=== PATIENT | female | born 1995 | race Caucasian/White ===

== ENCOUNTER 2016-04-07 09:01 | Emergency (ER) | payer OTHER ==
[~2016-04-07 09:01] MED LIST: PREN1CAP17 PO
--- NOTE | 2016-04-07 09:33 | PD ---
HPI Chief Complaint possibly leaking water? Date Seen: Apr 07, 2016 Travel History International Travel<30 Days: No Contact w/Intl Traveler<30Days: No History of Present Illness HPI Patient is 20-year-old white female 40 weeks gestation followed by careful women sent over today to rule out ruptured membranes. She was seen in the office described a gush of fluid several times yesterday and once this morning. She is currently not leaking fluid. No bleeding or pain. She is thiago somewhat heart rate tracing is reactive Para: 1 : 3 : 1 History Past Medical History Medical History: Denies Significant Hx Social History Alcohol Use: No Tobacco Use: No Substance Abuse: No Allergies-Medications (Allergen,Severity, Reaction): Coded Allergies: No Known Allergies (Unverified , 04/07/16) Home Meds Reported Medications W/O A W/ Fe Asparto G (Prenate Pixie 10-0.6-0.4-200 mg)1 Cap Cap Po # 30 02/16/16 Review of Systems General / Constitutional: No: Fever, Weight Gain, Chills, Other Physical Exam Narrative GENERAL: Well-nourished, well-developed patient. SKIN: Warm and dry. HEAD: Normocephalic and atraumatic. EYES: No scleral icterus. No injection or drainage. ENT: No nasal drainage noted. Mucous membranes pink. Airway patent. NECK: Supple, trachea midline. No JVD. CARDIOVASCULAR: Regular rate and rhythm without murmurs, gallops, or rubs. RESPIRATORY: Breath sounds equal bilaterally. No accessory muscle use. BREASTS: Bilateral exam showed no masses , no retractions, no nipple discharge. ABDOMEN/GI: Abdomen soft, non-tender, bowel sounds present, no rebound, no guarding Gravid to [term-] weeks size Fundal Height: [38 cm-] GENITOURINARY: External Genitalia: intact and normal in appearance BUS glands: [-] Cervix: [ ] Posterior Dilatation: [fingertip] Effacement: [60-] Station: [-3] Presentation: [vtx-] Membranes: [intact ]amnisure neg Uterine Contractions: [-occasional not felt] FHT's: Category: [-1] Baseline: [-144] Reactive: [-yes] Variability: [-mod] Decels: [-none] EXTREMITIES: No cyanosis or edema. BACK: Nontender without obvious deformity. No CVA tenderness. NEUROLOGICAL: Awake and alert. Motor and sensory grossly within normal limits. Five out of 5 muscle strength in all muscle groups. Normal speech. Data Data Labs amnisure neg MDM Interpretation(s) Week intrauterine questionable leakage of fluid. Amnisure is negative today, heart rate tracing is reactive contractions are irregular and she's not feeling them Plan Discharge home to observation return for any further large amounts of fluid per vagina bleeding or worsening pain Diagnosis Diagnosis: Primary Impression: No leakage of amniotic fluid into vagina Disposition: 01 DISCHARGE HOME Condition: Stable Emerson Sosa II, MD Apr 07, 2016 09:33
[2016-05-26] MEDS ORDERED: LEVO13.5 I-UTERINE (11:14)
[2016-07-11] MEDS ORDERED: AVIATAB PO (11:43)
== END 2016-04-07 09:45 | disposition home or self-care (01) ==
LOC: HOBED 09:01
DX: O26.93 Pregnancy related conditions, unspecified, third trimester (principal); R68.89 Other general symptoms and signs; Z3A.40 40 weeks gestation of pregnancy
CPT/HCPCS: 59025; 84112

== ENCOUNTER 2016-04-09 03:38 | Inpatient (IN) | payer OTHER ==
[2016-04-09] VITALS (8 sets, daily range): BP systolic 118–145; BP diastolic 66–92; PULSE 68–93; RESP 18; TEMP 97.9–99.1
[2016-04-09 04:29] LABS: AUTOMATED NEUTROPHIL # 7.3 TH/MM3 (1.8-7.7); BASOPHIL % 0.2 % (0.0-2.0); EOSINOPHIL % 0.3 % (0.0-4.0); HEMATOCRIT 35.8 % (35.0-46.0); HEMO FLAGS DIFF FINAL; LYMPHOCYTE # 2.2 TH/MM3 (1.0-4.8); MEAN CELL VOLUME 86.1 FL (80.0-100.0); MEAN CORPUSCULAR HEMOGLOBIN 29.4 PG (27.0-34.0); MEAN CORPUSCULAR HGB CONC 34.1 % (32.0-36.0); MONO % 11.4 % (0.0-8.0); NEUT % 68.1 % (16.0-70.0); PLATELET COUNT 203 TH/MM3 (150-450); RED BLOOD COUNT 4.15 MIL/MM3 (4.00-5.30); RED CELL DISTRIBUTION WIDTH 14.8 % (11.6-17.2); WHITE BLOOD COUNT 10.8 TH/MM3 (4.0-11.0)
[2016-04-09] MEDS ORDERED: OXYTOCIN 30 UNITS-500ML PREMIX 500 ML ONE (04:36)
--- NOTE | 2016-04-09 04:49 | PD.OB.DELI ---
Delivery Date: Apr 09, 2016 Anesthesia: None Episiotomy: None Vaginal Delivery: Normal, Spontaneous Presentation: Occiput posterior Nuchal Cord: x1 Infant: Female, Single One Minute : 7 Five Minute : 8 Weight: [id number] Infant Care: Suctioned, Intubated and suctioned, Responded to stimulation, Blow -by O2 delivered Placenta: Spontaneous delivery, Intact, 3 vessel cord Laceration: No lacerations Additional Information Spontaneous delivery of the baby girl. Followed by spontaneous delivery of the placenta Christopher Anderson MD R2 Apr 09, 2016 04:49
--- NOTE | 2016-04-09 04:52 | PD ---
HPI Chief Complaint labor pain Date Seen: Apr 09, 2016 Travel History International Travel<30 Days: No Contact w/Intl Traveler<30Days: No History of Present Illness HPI Patient is 20-year-old black female at 40 weeks gestation presents in active labor 8 cm dilated no bleeding or rupture the membranes is followed by care for women, heart rate tracing is reactive she is thiago every 2 minutes Para: 1 : 3 : 1 History Obstetric History Obstetric History Previous vaginal delivery Social History Alcohol Use: No Tobacco Use: No Substance Abuse: No Allergies-Medications (Allergen,Severity, Reaction): Coded Allergies: No Known Allergies (Unverified , 04/07/16) Home Meds Reported Medications W/O A W/ Fe Asparto G (Prenate Pixie 10-0.6-0.4-200 mg)1 Cap Cap Po # 30 02/16/16 Review of Systems General / Constitutional: No: Fever, Weight Gain, Chills, Other Physical Exam Narrative GENERAL: Well-nourished, well-developed patient. SKIN: Warm and dry. HEAD: Normocephalic and atraumatic. EYES: No scleral icterus. No injection or drainage. ENT: No nasal drainage noted. Mucous membranes pink. Airway patent. NECK: Supple, trachea midline. No JVD. CARDIOVASCULAR: Regular rate and rhythm without murmurs, gallops, or rubs. RESPIRATORY: Breath sounds equal bilaterally. No accessory muscle use. BREASTS: Bilateral exam showed no masses , no retractions, no nipple discharge. ABDOMEN/GI: Abdomen soft, non-tender, bowel sounds present, no rebound, no guarding Gravid to [term-] weeks size Fundal Height: [39 cm-] GENITOURINARY: External Genitalia: intact and normal in appearance BUS glands: [-] Cervix: [-] Dilatation: [-8] Effacement: [100-] Station: [-1] Presentation: [vtx-] Membranes: [intact ] Uterine Contractions: [-reg] FHT's: Category: [1-] Baseline: [144-] Reactive: [yes-] Variability: [mod-] Decels: [none-] EXTREMITIES: No cyanosis or edema. BACK: Nontender without obvious deformity. No CVA tenderness. NEUROLOGICAL: Awake and alert. Motor and sensory grossly within normal limits. Five out of 5 muscle strength in all muscle groups. Normal speech. Data Data Orders Complete Blood Count With Diff (04/09/16 04:13) Comprehensive Metabolic Panel (04/09/16 04:13) Hold Clot (04/09/16 04:13) Abo/Rh Blood Type (04/09/16 04:13) Ob (2e) Additional Admit Info (04/09/16 04:13) Vital Signs (Adult) .QSHIFT (04/09/16 04:46) Activity Oob Ad Susie (04/09/16 04:46) Ice / Cold Pack PRN (04/09/16 04:46) ^ Discontinue Iv (04/09/16 04:46) ^ Sitz Bath PRN (04/09/16 04:46) ^ Massage (04/09/16 04:46) ^ Rhogam (04/09/16 04:46) Urinary Catheter Management .PRN (04/09/16 04:46) Diet Regular Basic (04/09/16 Breakfast) Sodium Chloride 0.9% Flush (Ns Flush) (04/09/16 09:00) Sodium Chloride 0.9% Flush (Ns Flush) (04/09/16 05:00) Acetaminophen (Tylenol) (04/09/16 05:00) Ibuprofen (Motrin) (04/09/16 05:00) Benzocaine 20% Top Spr (Americaine 20% T (04/09/16 05:00) Witch Vandana-Glycerin Pad (Tucks Pads) (04/09/16 05:00) Docusate Sodium-Senna (Ginny-Colace) (04/09/16 05:00) Zolpidem (Ambien) (04/09/16 05:00) Oxldydg-Iyswb-Vatigwh Inj (M-M-R Ii Inj) (04/09/16 16:00) Gwff-Ymb-Sdboqb (Booster) Inj (Boostrix (04/09/16 16:00) Al-Mag Hy-Si 40-40-4 Mg/Ml Liq (Mag-Al P (04/09/16 05:00) Ondansetron Odt (Zofran Odt) (04/09/16 05:00) Oxytocin 30 Units-500ml Premix (Pitocin (04/09/16 04:36) Labs Laboratory Tests Test 04/09/16 03:55 White Blood Count 10.8 Red Blood Count 4.15 Hemoglobin 12.2 Hematocrit 35.8 Mean Corpuscular Volume 86.1 Mean Corpuscular Hemoglobin 29.4 Mean Corpuscular Hemoglobin 34.1 Concent Red Cell Distribution Width 14.8 Platelet Count 203 Mean Platelet Volume 9.6 Neutrophils (%) (Auto) 68.1 Lymphocytes (%) (Auto) 20.0 Monocytes (%) (Auto) 11.4 Eosinophils (%) (Auto) 0.3 Basophils (%) (Auto) 0.2 Neutrophils # (Auto) 7.3 Lymphocytes # (Auto) 2.2 Monocytes # (Auto) 1.2 Eosinophils # (Auto) 0.0 Basophils # (Auto) 0.0 CBC Comment DIFF FINAL Differential Comment MDM Interpretation(s) 40 week intrauterine in active labor on presentation. Heart rate tracing reactive contractions regular she is 8 cm on admission Plan Plan to admit and anticipate vaginal delivery Diagnosis Diagnosis: Primary Impression: Precipitate labor, delivered, current hospitalization Emerson Sosa II, MD Apr 09, 2016 04:52
--- NOTE | 2016-04-09 04:59 | PD.LABORPN ---
Subjective Subjective OB Attending Note Pt delivered by FM residents without complication over intact perineum , Wt - 9lb 11 oz apgars 7/8 , female , placenta out spont, EBL 200 cc delivery supervised by ALEISHA doctor. Objective Objective Emerson Sosa II, MD Apr 09, 2016 04:58
[2016-04-09 05:00] LABS: ALT (GPT) 15 U/L (9-42); ANION GAP 11 MEQ/L (5-15); AST (GOT) 9 U/L (16-38); BICARBONATE 21.8 MEQ/L (21.0-32.0); BLOOD UREA NITROGEN 6 MG/DL (7-18); CHLORIDE 105 MEQ/L (98-107); GLOMERULAR FILTRATION RATE 154 ML/MIN (>89); POTASSIUM 4.1 MEQ/L (3.5-5.1); SODIUM (NA) 138 MEQ/L (136-145)
[2016-04-09] MEDS ORDERED: SODIUM CHLORIDE 0.9% FLUSH 5 ML FLUSH IV PRN ×2 (05:00→05:15)
[2016-04-09] MEDS ORDERED: ALUMINUM/MAGNESIUM/SIMETH 30 ML CUP PO PRN (05:00)
[2016-04-09] MEDS ORDERED: ACETAMINOPHEN 325 MG TAB PO PRN (05:00)
[2016-04-09] MEDS ORDERED: WITCH HAZEL 50%/GLYCERIN 12.5% 40 PAD JAR TOPICAL PRN (05:00)
[2016-04-09] MEDS ORDERED: DOCUSATE SODIUM 50 MG/SENNA 8.6 MG TAB PO PRN (05:00)
[2016-04-09] MEDS ORDERED: ZOLPIDEM TARTRATE 5 MG TAB PO PRN (05:00)
[2016-04-09] MEDS ORDERED: ONDANSETRON ODT 4 MG TAB PO PRN (05:00)
[2016-04-09] MEDS ORDERED: BENZOCAINE 20% TOPICAL SPRAY 60 ML CAN TOPICAL PRN (05:00)
[2016-04-09 05:02] LABS: ALKALINE PHOSPHATASE 192 U/L (45-117); TOTAL BILIRUBIN ADULT 0.2 MG/DL (0.2-1.0)
[2016-04-09] MEDS ORDERED: oxyCODONE/ACETAMINOPHEN 5 MG/325 MG TAB PO PRN ×2 (05:15)
[2016-04-09] MEDS ORDERED: SODIUM CHLORIDE 0.9% FLUSH 5 ML FLUSH IV SCH (09:00)
[2016-04-09] MEDS: IBUPROFEN 600 MG TAB PO PRN ×2 (10:46→17:22)
[2016-04-09] MEDS ORDERED: DIPHTH/TETANUS/ACEL PERTUSSIS (BOOSTER) 0.5 ML VIAL/PFS IM ONE (16:00)
[2016-04-09] MEDS ORDERED: MEASLES, MUMPS, RUBELLA VACCINE 0.5 ML VIAL SQ ONE (16:00)
[2016-04-10] MEDS: IBUPROFEN 600 MG TAB PO PRN ×3 (00:36→20:50)
[2016-04-10] MEDS ORDERED: TUMS500C CHEW (06:33)
[2016-04-10 08:00] VITALS: BP 135/82; PULSE 76; RESP 16; TEMP 98.3
[2016-04-10] MEDS: SODIUM CHLORIDE 0.9% FLUSH 5 ML FLUSH IV SCH ×2 (09:00→20:45)
[2016-04-10] MEDS ORDERED: INFLUENZA VIRUS VACCINE (QUADRIVALENT) 0.5 ML SYR IM ONE (10:00)
--- NOTE | 2016-04-10 10:03 | HHI.OB ---
Subjective Remarks 20 y/o PPD1 after . Doing well this morning. Pain is well controlled with medication. Lochia is light. She is ambulating. Good appetite. Had no bowel movement, but passing flatus. Would like Lilian for control. She will follow up with Xena Sanchez. No chest pain, shortness of breath, abdominal pain, calf tenderness. (Stevan Negron MD R2) Objective Vitals/I&O Vital Signs Date Time Temp Pulse Resp B/P Pulse Ox O2 Delivery O2 Flow Rate FiO2 04/10/16 08:00 76 135/82 04/10/16 08:00 98.3 16 04/09/16 20:00 97.9 83 18 118/74 Objective Remarks GENERAL: Well-nourished, well-developed patient. CARDIOVASCULAR: Regular rate and rhythm without murmurs, gallops, or rubs. RESPIRATORY: Breath sounds equal bilaterally. No accessory muscle use. ABDOMEN/GI: Abdomen soft, non-tender. Fundus: Firm, non-tender at umbilicus. GENITOURINARY: Light to moderate bleeding. EXTREMITIES: No cyanosis or edema, non-tender, without signs of DVT. Medications and IVs Current Medications Medications (Trade) Dose Ordered Sig/Shahbaz Route Start Time Stop Time Status Last Admin (Tylenol) 650 mg Q4H PRN PO 04/09/16 05:00 (Motrin) 600 mg Q6H PRN PO 04/09/16 05:00 04/10/16 00:36 (Americaine 20% Top Spr) 1 spray Q4H PRN TOPICAL 04/09/16 05:00 (Tucks Pads) 1 applic QID PRN TOPICAL 04/09/16 05:00 (Ginny-Colace) 2 tab Q12H PRN PO 04/09/16 05:00 (Ambien) 5 mg HS PRN PO 04/09/16 05:00 (Mag-Al Plus Susp Liq) 15 ml Q8H PRN PO 04/09/16 05:00 (Zofran Odt) 4 mg Q6H PRN PO 04/09/16 05:00 (NS Flush) 2 ml BID IV 04/09/16 09:00 (NS Flush) 2 ml UNSCH PRN IV 04/09/16 05:15 (Percocet 5-325 Mg) 1 tab Q4H PRN PO 04/09/16 05:15 (Percocet 5-325 Mg) 2 tab Q4H PRN PO 04/09/16 05:15 (Flu (Quadrivalent) Vaccine Inj) 0.5 ml ONCE ONCE IM 04/10/16 10:00 04/10/16 10:01 04/09/16 15:58 (Stevan Negron MD R2) Assessment/Plan Assessment and Plan 20 y/o PPD1 after for failure to progress. - Pain control with Motrin and Percocet. - Encourage ambulation. - Continue discussion about control options. - Encourage exclusive . - Monitor amount of lochia. - Anticipate discharge tomorrow if doing well. Discussed with Dr. Hill (Stevan Negron MD R2) Attending Attestation The exam, history, and the medical decision-making described in the above note were completed with the assistance of the resident provider. I reviewed and agree with the findings presented. I attest that I had a [id number] encounter with the patient on the same day, and personally performed and documented my assessment and findings in the medical record. (Mak Hill MD) Stevan Negron MD R2 Apr 10, 2016 10:03 Mak Hill MD Apr 10, 2016 10:09
[2016-04-11] MEDS ORDERED: IBUP-232 PO (07:18)
[2016-04-11] MEDS ORDERED: SENN1TAB PO (07:18)
--- NOTE | 2016-04-11 07:19 | HHI.DCPOC ---
Discharge Care Plan Diagnosis: (1) Spontaneous vaginal delivery Goals to Promote Your Health * To prevent worsening of your condition and complications * To maintain your health at the optimal level Directions to Meet Your Goals Take your medications as prescribed Follow your dietary instruction Follow activity as directed Keep your appointments as scheduled Take your immunizations and boosters as scheduled If your symptoms worsen call your PCP, if no PCP go to Urgent Care Center or Emergency Room Smoking is Dangerous to Your Health. Avoid second hand smoke Call the 24-hour hour crisis hotline for domestic abuse at Stevan Negron MD R2 Apr 11, 2016 07:19
--- NOTE | 2016-04-11 08:18 | HHI.OB ---
Subjective Post Day: 2 Remarks day #2. AFVSS overnight. Pain well controlled. Decreased lochia. Denies dysuria. No breast tenderness. She is feeding the baby via bottle. Appetite good. No nausea or vomiting. Endorses flatus. Endorses bowel movement. Ambulating well. Denies calf pain, shortness of breath, or cough. Otherwise, she is doing well this morning and has no other complaints. Objective Objective Remarks GENERAL: Well-nourished, well-developed patient. CARDIOVASCULAR: Regular rate and rhythm without murmurs, gallops, or rubs. RESPIRATORY: Breath sounds equal bilaterally. No accessory muscle use. ABDOMEN/GI: Abdomen soft, non-tender. Fundus: Firm, non-tender at umbilicus. GENITOURINARY: Light to moderate bleeding. EXTREMITIES: No cyanosis or edema, non-tender, without signs of DVT. Medications and IVs Current Medications Medications (Trade) Dose Ordered Sig/Shahbaz Route Start Time Stop Time Status Last Admin (Tylenol) 650 mg Q4H PRN PO 04/09/16 05:00 (Motrin) 600 mg Q6H PRN PO 04/09/16 05:00 04/10/16 20:50 (Americaine 20% Top Spr) 1 spray Q4H PRN TOPICAL 04/09/16 05:00 (Tucks Pads) 1 applic QID PRN TOPICAL 04/09/16 05:00 (Ginny-Colace) 2 tab Q12H PRN PO 04/09/16 05:00 04/10/16 20:50 (Ambien) 5 mg HS PRN PO 04/09/16 05:00 (Mag-Al Plus Susp Liq) 15 ml Q8H PRN PO 04/09/16 05:00 (Zofran Odt) 4 mg Q6H PRN PO 04/09/16 05:00 (NS Flush) 2 ml BID IV 04/09/16 09:00 (NS Flush) 2 ml UNSCH PRN IV 04/09/16 05:15 (Percocet 5-325 Mg) 1 tab Q4H PRN PO 04/09/16 05:15 (Percocet 5-325 Mg) 2 tab Q4H PRN PO 04/09/16 05:15 Assessment/Plan Assessment and Plan 20y/o who is PPD#2 s/p . -Continue routine care. -Percocet and Motrin PRN pain. -Encouraged OOB. Advised pelvic rest for 6 wks. -Will need a f/u appt. within 6 wks. -Re: ctrl, she would like Mirena -D/c today wdw OB attending Discharge Planning Today Kevyn Connors MD R1 Apr 11, 2016 08:18
--- NOTE | 2016-04-11 09:21 | HHI.OB ---
Subjective Post Day: 2 Remarks Patient is day 2 from vaginal delivery without complication. She is doing well with the decreased bleeding tolerating her diet and having normal bowel bladder function, patient seen with family medicine residents agree with their evaluation and plan for her to be discharged later today. She knows to follow-up with her OB provider. Objective Objective Remarks GENERAL: Well-nourished, well-developed patient. CARDIOVASCULAR: Regular rate and rhythm without murmurs, gallops, or rubs. RESPIRATORY: Breath sounds equal bilaterally. No accessory muscle use. ABDOMEN/GI: Abdomen soft, non-tender. Fundus: Firm, non-tender at umbilicus. GENITOURINARY: Light to moderate bleeding. EXTREMITIES: No cyanosis or edema, non-tender, without signs of DVT. Medications and IVs Current Medications Medications (Trade) Dose Ordered Sig/Shahbaz Route Start Time Stop Time Status Last Admin (Tylenol) 650 mg Q4H PRN PO 04/09/16 05:00 (Motrin) 600 mg Q6H PRN PO 04/09/16 05:00 04/10/16 20:50 (Americaine 20% Top Spr) 1 spray Q4H PRN TOPICAL 04/09/16 05:00 (Tucks Pads) 1 applic QID PRN TOPICAL 04/09/16 05:00 (Ginny-Colace) 2 tab Q12H PRN PO 04/09/16 05:00 04/10/16 20:50 (Ambien) 5 mg HS PRN PO 04/09/16 05:00 (Mag-Al Plus Susp Liq) 15 ml Q8H PRN PO 04/09/16 05:00 (Zofran Odt) 4 mg Q6H PRN PO 04/09/16 05:00 (NS Flush) 2 ml BID IV 04/09/16 09:00 (NS Flush) 2 ml UNSCH PRN IV 04/09/16 05:15 (Percocet 5-325 Mg) 1 tab Q4H PRN PO 04/09/16 05:15 (Percocet 5-325 Mg) 2 tab Q4H PRN PO 04/09/16 05:15 Assessment/Plan Assessment and Plan 20y/o who is PPD#2 s/p . -Continue routine care. -Percocet and Motrin PRN pain. -Encouraged OOB. Advised pelvic rest for 6 wks. -Will need a f/u appt. within 6 wks. -Re: ctrl, she would like [place] -D/c today wdw OB attending Discharge Planning Today Emerson Sosa II, MD Apr 11, 2016 09:21
[2016-05-26] MEDS ORDERED: LEVO13.5 I-UTERINE (11:14)
[2016-07-11] MEDS ORDERED: AVIATAB PO (11:43)
== END 2016-04-11 12:55 | disposition home or self-care (01) | DRG 775 ==
LOC: HOBED 04:11 → H2EA 04:14 → H1EA 07:50
PROVIDERS: ADMIT Obstetrics & Gynecology Maternal & Fetal Medicine; ATTEND Obstetrics & Gynecology Maternal & Fetal Medicine
PROC: 10E0XZZ Delivery of Products of Conception, External Approach (ICD-10-PCS; principal; 2016-04-09)
DX: O62.2 Other uterine inertia (principal); O62.3 Precipitate labor; O69.81X0 Labor and delivery complicated by cord around neck, without compression, not applicable or unspecified; Z37.0 Single live birth; Z3A.40 40 weeks gestation of pregnancy
CPT/HCPCS: 59025; 80053; 84112; 85025; 86900; 86901; 90686; 90715; 99285; J2590; Q2038

== ENCOUNTER 2016-12-20 20:48 | Emergency (ER) | payer SELFPAY ==
[~2016-12-20 20:48] MED LIST changes: +AVIATAB PO; +LEVO13.5 I-UTERINE; -PREN1CAP17 PO
[2016-12-20 20:50] VITALS: BP 121/91; PULSE 86; RESP 17; TEMP 98.4; O2SAT 96
--- NOTE | 2016-12-20 21:36 | PD ---
Physical Exam Date Seen by Provider: Dec 20, 2016 Time Seen by Provider: 21:33 Narrative 21-year-old white female presents to emergency department with complaints of side effects from her IUD. The patient states that she has contacted her doctor and was advised to come to the ER to have it removed. She states that she's been having irregular bleeding with clots. Patient complains of intermittent pelvic cramping and a vaginal odor. No fever chills. No nausea vomiting. No urinary symptoms. Vital signs reviewed. Awaiting bed placement. Data Data Last Documented VS Vital Signs Date Time Temp Pulse Resp B/P (MAP) Pulse Ox O2 Delivery O2 Flow Rate FiO2 12/20/16 20:50 98.4 86 17 121/91 (101) 96 Room Air [facility] Medical Record Reviewed: No Supervised Visit with SHANA: Flo Alexander Dec 20, 2016 21:36
--- NOTE | 2016-12-20 22:23 | PD ---
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 Patient states she had her IUD placed in May after delivering in April. She states she's been having irregular periods bleeding and discharge since then. She's not been evaluated by her PHARMACY SCHEDULER for these problems. She states over the past few day she's noticed increased discharge some suprapubic cramping. She called her PHARMACY SCHEDULER who told her to come to the emergency department for evaluation. Denies any fever denies any nausea vomiting denies any diarrhea constipation. Symptoms are mild, chronic but gradually worsening. PFSH Past Medical History Diminished Hearing: No ?: Unknown LMP: UNKNOWN : 3 Para: 2 Dilation and Curettage (D&C): Yes Social History Alcohol Use: No Tobacco Use: No Substance Use: No Allergies-Medications (Allergen,Severity, Reaction): Coded Allergies: No Known Allergies (Unverified , 12/20/16) Reported Meds & Prescriptions Reported Meds & Active Scripts Active Flagyl (Metronidazole) 500 Mg Tab 500 Mg PO BID 7 Days Aviane (Levonorgestrel-Ethinyl Estradiol) 0.1-20 Mg-Mcg Tab 1 Tab PO DAILY Reported Dora (Levonorgestrel (Iud)) 13.5 Mg Iud 13.5 Mg I-UTERINE ONCE Review of Systems Except as stated in HPI: all other systems reviewed are Neg Physical Exam Narrative GENERAL: Well-developed well-nourished in no obvious distress. SKIN: Focused skin assessment warm/dry. HEAD: Atraumatic. Normocephalic. EYES: Pupils equal and round. No scleral icterus. No injection or drainage. ENT: No nasal bleeding or discharge. Mucous membranes pink and moist. NECK: Trachea midline. No JVD. CARDIOVASCULAR: Regular rate and rhythm. No murmur appreciated. RESPIRATORY: No accessory muscle use. Clear to auscultation. Breath sounds equal bilaterally. GASTROINTESTINAL: Abdomen soft, non-tender, nondistended. Hepatic and splenic margins not palpable. GENITOURINARY: Exam was performed with female nurse procurement agent present all times , grossly normal external female genitalia, cervix is normal IUD wires are seen , no cervical motion tenderness no bimanual tenderness, minimal discharge white creamy consistent with BV is seen. MUSCULOSKELETAL: No obvious deformities. No clubbing. No cyanosis. No edema. NEUROLOGICAL: Awake and alert. No obvious cranial nerve deficits. Motor grossly within normal limits. Normal speech. PSYCHIATRIC: Appropriate mood and affect; insight and judgment normal. Data Data Last Documented VS Vital Signs Date Time Temp Pulse Resp B/P (MAP) Pulse Ox O2 Delivery O2 Flow Rate FiO2 12/21/16 00:43 12/20/16 20:50 98.4 86 17 96 Room Air Orders Orders Gc And Chlamydia Pcr (12/20/16 22:15) Wet Prep Profile (12/20/16 22:15) Complete Blood Count With Diff (12/20/16 22:18) Urinalysis - C+S If Indicated (12/20/16 22:23) Ed Urine Pregnancytest Poc (12/20/16 22:23) Labs Laboratory Tests Test 12/20/16 22:43 12/20/16 23:36 White Blood Count 7.3 TH/MM3 Red Blood Count 4.17 MIL/MM3 Hemoglobin 13.0 GM/DL Hematocrit 37.8 % Mean Corpuscular Volume 90.8 FL Mean Corpuscular Hemoglobin 31.3 PG Mean Corpuscular Hemoglobin Concent 34.4 % Red Cell Distribution Width 11.9 % Platelet Count 286 TH/MM3 Mean Platelet Volume 8.7 FL Neutrophils (%) (Auto) 51.3 % Lymphocytes (%) (Auto) 33.9 % Monocytes (%) (Auto) 9.8 % Eosinophils (%) (Auto) 4.6 % Basophils (%) (Auto) 0.4 % Neutrophils # (Auto) 3.7 TH/MM3 Lymphocytes # (Auto) 2.5 TH/MM3 Monocytes # (Auto) 0.7 TH/MM3 Eosinophils # (Auto) 0.3 TH/MM3 Basophils # (Auto) 0.0 TH/MM3 CBC Comment DIFF FINAL Differential Comment Urine Color LIGHT-YELLOW Urine Turbidity CLEAR Urine pH 6.0 Urine Specific [place] 1.015 Urine Protein NEG mg/dL Urine Glucose (UA) NEG mg/dL Urine Ketones NEG mg/dL Urine Occult Blood NEG Urine Nitrite NEG Urine Bilirubin NEG Urine Urobilinogen LESS THAN 2.0 MG/DL Urine Leukocyte Esterase MOD Urine RBC 1 /hpf Urine WBC 2 /hpf Urine Squamous Epithelial Cells 1 /hpf Urine Mucus FEW /lpf Microscopic Urinalysis Comment CULT NOT INDICATED Clue Cells (Wet Prep) PRESENT Vaginal Trichomonas (Wet Prep) NONE SEEN Vaginal Yeast (Wet Prep) NONE SEEN MDM Medical Decision Making Medical Screen Exam Complete: Yes Emergency Medical Condition: Yes Differential Diagnosis , anemia, dysfunctional uterine bleeding, PID unlikely, BV, STD. Narrative Course Patient roomed in the emergency department, quite comfortable and nontoxic appearance. Signs symptoms consistent with BV. The UPT negative, hemoglobin within normal limits. No indication for emergent removal of her IUD. She was discussed treatment with Flagyl and follow up with her PHARMACY SCHEDULER. She is stable for discharge. Diagnosis Primary Impression: Bacterial vaginosis Additional Impression: IUD (intrauterine device) in place Med/Other Pt SpecificInfo: Prescription(s) given Scripts Metronidazole (Flagyl) 500 Mg Tab 500 MG PO BID for Infection for 7 Days, #14 TAB 0 Refills Prov: John Paul Ocampo MD 12/21/16 Disposition: 01 DISCHARGE HOME Condition: Stable John Paul Ocampo MD Dec 20, 2016 22:23
[2016-12-20 23:13] LABS: AUTOMATED NEUTROPHIL # 3.7 TH/MM3 (1.8-7.7); BASOPHIL % 0.4 % (0.0-2.0); EOSINOPHIL # 0.3 TH/MM3 (0-0.4); EOSINOPHIL % 4.6 % (0.0-4.0); HEMATOCRIT 37.8 % (35.0-46.0); LYMPH % 33.9 % (9.0-44.0); LYMPHOCYTE # 2.5 TH/MM3 (1.0-4.8); MEAN CELL VOLUME 90.8 FL (80.0-100.0); MEAN CORPUSCULAR HEMOGLOBIN 31.3 PG (27.0-34.0); MEAN CORPUSCULAR HGB CONC 34.4 % (32.0-36.0); MONO % 9.8 % (0.0-8.0); NEUT % 51.3 % (16.0-70.0); PLATELET COUNT 286 TH/MM3 (150-450); RED BLOOD COUNT 4.17 MIL/MM3 (4.00-5.30); RED CELL DISTRIBUTION WIDTH 11.9 % (11.6-17.2); WHITE BLOOD COUNT 7.3 TH/MM3 (4.0-11.0)
[2016-12-20 23:14] LABS: HEMO FLAGS DIFF FINAL
[2016-12-20 23:50] LABS: BLOOD, URINE NEG (NEG); COMMENT (UR) CULT NOT INDICATED; CULTURE IF INDICATED CULT NOT INDICATED; GLUCOSE,URINE NEG (NEG); KETONE, URINE NEG (NEG); MUCUS URINE FEW /lpf (OCC); NITRITE,URINE NEG (NEG); SQUAMOUS EPITHELIAL CELL URINE 1 /hpf (0-5); URINE COLOR LIGHT-YELLOW (YELLW/STRAW)
[2016-12-21] MEDS ORDERED: METR-1 PO (00:20)
[2016-12-21 02:36] LABS: CHLAMYDIA PCR NOT DETECTED (NOT DETECT); NEISSERIA PCR NOT DETECTED (NOT DETECT)
== END 2016-12-21 00:44 | disposition home or self-care (01) ==
LOC: NEPD 20:48
DX: N76.0 Acute vaginitis (principal); N92.6 Irregular menstruation, unspecified; Z97.5 Presence of (intrauterine) contraceptive device
CPT/HCPCS: 81001; 84703; 85025; 87210; 87491; 87591; 99284

== ENCOUNTER 2017-06-18 15:58 | Emergency (ER) | payer SELFPAY ==
[~2017-06-18 15:58] MED LIST changes: +METR-1 PO
[2017-06-18 16:20] VITALS: BP 135/76; PULSE 69; RESP 14; TEMP 97.3; O2SAT 100
[2017-06-18] MEDS ORDERED: METR1TAB76 PO (19:56)
--- NOTE | 2017-06-18 19:56 | PD ---
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 States she feels like she has bacterial vaginosis. She has had in the past. She has only had it one time before, and thinks it is all related to having an IUD placed several months ago. She sexually active one male partner. He has no symptoms. She denies any pain or discomfort. History Past Medical History Medical History: Denies Significant Hx : 3 Para: 2 Dilation and Curettage (D&C): Yes Social History Alcohol Use: No Tobacco Use: No Allergies-Medications (Allergen,Severity, Reaction): Coded Allergies: No Known Allergies (Unverified , 12/20/16) Reported Meds & Prescriptions Reported Meds & Active Scripts Active Metronidazole 500 Mg Tab 500 Mg PO BID 7 Days Flagyl (Metronidazole) 500 Mg Tab 500 Mg PO BID 7 Days Aviane (Levonorgestrel-Ethinyl Estradiol) 0.1-20 Mg-Mcg Tab 1 Tab PO DAILY Reported Dora (Levonorgestrel (Iud)) 13.5 Mg Iud 13.5 Mg I-UTERINE ONCE Review of Systems Except as stated in HPI: all other systems reviewed are Neg Physical Exam Narrative GENERAL: Well-appearing 21-year-old woman, no acute distress per SKIN: Warm and dry. CARDIOVASCULAR: Warm and well perfused. RESPIRATORY: Normal rate and effort. MUSCULOSKELETAL: No deformities. NEUROLOGICAL: Awake and alert. No gross deficits. Data Data Last Documented VS Vital Signs Date Time Temp Pulse Resp B/P (MAP) Pulse Ox O2 Delivery O2 Flow Rate FiO2 06/18/17 16:20 97.3 69 14 135/76 (95) 100 Orders Orders Ed Urine Pregnancytest Poc (06/18/17 18:04) Gc And Chlamydia Pcr (06/18/17 20:23) Wet Prep Profile (06/18/17 20:23) Ed Discharge Order (06/18/17 20:57) Labs Laboratory Tests Test 06/18/17 20:26 Clue Cells (Wet Prep) NONE SEEN Vaginal Trichomonas (Wet Prep) NONE SEEN Vaginal Yeast (Wet Prep) NONE SEEN MDM Medical Decision Making Medical Screen Exam Complete: Yes Emergency Medical Condition: Yes Interpretation(s) Wet prep unremarkable wet prep unremarkable Differential Diagnosis CV, trichomoniasis, cervicitis, other Narrative Course Medical decision making 21-year-old malodorous vaginal discharge, suspicious for BV. Prep is negative. Still strong suspicion for BV given clinical symptoms. GC chlamydia is pending. Recommend empiric treatment for BV, follow-up with [facility] if symptoms do not improve. Diagnosis Primary Impression: Bacterial vaginosis Additional Instructions: Take Flagyl as prescribed. Return to the emergency department for any new or worsening symptoms. 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 Med/Other Pt SpecificInfo: Prescription(s) given Scripts Metronidazole (Metronidazole) 500 Mg Tab 500 MG PO BID for Infection for 7 Days, #14 TAB 0 Refills Prov: Dain Michaud MD 06/18/17 Disposition: 01 DISCHARGE HOME Condition: Stable Dain Michaud MD Jun 18, 2017 19:56
== END 2017-06-18 21:15 | disposition home or self-care (01) ==
LOC: NED 15:58 → NEPD 21:15
DX: N76.0 Acute vaginitis (principal); B96.89 Other specified bacterial agents as the cause of diseases classified elsewhere; Z79.899 Other long term (current) drug therapy
CPT/HCPCS: 84703; 87210; 87491; 87591; 99283